=== PATIENT | female | born 2000 | race Native Hawaiian/Other Pacific Islander ===

== ENCOUNTER 2024-12-14 04:18 | Emergency (ER) | payer OTHER, SELFPAY ==
[2024-12-14 04:37] VITALS: BP 127/64; PULSE 86; RESP 18; TEMP 36.6; O2SAT 95; BMI 48.6
--- NOTE | 2024-12-14 04:49 | ED_ITS ---
HPI - Female Genitourinary General Chief complaint: Urogenital-Female Stated complaint: Possible UTI Time Seen by Provider: 12/14/24 04:43 Source: patient Mode of arrival: Ambulatory History of Present Illness HPI Narrative: Patient presents with urinary symptoms that began this morning. She denies the possibility of and reports no systemic symptoms such as fever or chills. She has no significant abdominal tenderness and denies vaginal discharge. She denies history of diabetes, hypertension heart disease or any family history of abnormalities she has had no history of UTIs in the past denies any new sexual contact or partners. Related Data Home Medications Medication Instructions Recorded Confirmed albuterol sulfate 90 mcg/actuation 1 puff INH ##0 07/30/16 aerosol inhaler (Ventolin HFA) Acetaminophen Extra Strength 500 mg PO Q6HR PRN Pain, Mild 12/14/24 12/14/24 diphenhydramine HCl 25 mg PO DAILY PRN allergies 12/14/24 12/14/24 Allergies Allergy/AdvReac Type Severity Reaction Status Date / Time No Known Drug Allergies Allergy Verified 12/14/24 04:35 Review of Systems Review of Systems Narrative: Constitutional: denies fever or chills. Eyes: no visual changes. Ears/Nose/Throat: no nasal congestion or drainage. Respiratory: no shortness of breath. Cardiac: no chest pain. Gastrointestinal: no nausea or vomiting. Skin: no laceration, no rash. Musculoskeletal: no extremity pain. Neurologic: no confusion. Psychiatric: no mood change. Genitourinary: reports urinary symptoms, denies vaginal discharge. Other: other. Exam Narrative Exam Narrative: General: Well appearing, well nourished, in no distress. Skin: Good turgor, no rash, unusual bruising or prominent lesions. Head: Normocephalic, atraumatic. HEENT: Conjunctiva clear, EOM intact, PERRL, Mucous membranes moist. Neck: Supple, normal ROM. Heart: Regular rate and rhythm, no murmur or gallop or rubs. Lungs: Clear to auscultation. No rales, rhonchi, or wheezes. Abdomen: No significant tenderness, no rebound tenderness, no pubic tenderness. Bowel sounds normal. No mass or hernia. Back: Spine normal without deformity or tenderness, no CVA tenderness. Extremities: No deformities, edema. Peripheral pulses intact. Neurologic: CN 2-12 normal. Normal sensation and motor exam. Psychiatric: Oriented X3. Normal mood and affect. Initial Vital Signs Initial Vital Signs: Vital Signs Temperature 97.9 F 12/14/24 04:37 Pulse Rate 86 12/14/24 04:37 Respiratory Rate 18 12/14/24 04:37 Blood Pressure 127/64 12/14/24 04:37 Pulse Oximetry 95 12/14/24 04:37 Oxygen Delivery Method Room Air 12/14/24 04:37 Course Orders Ordered: ED Orders 12/14/24 04:34 Ictotest Urine Stat 12/14/24 05:15 UA Complete [Urinalysis and Microscopic] Stat Vital Signs Vital signs: Vital Signs - 8 hr 12/14/24 04:37 Temperature 97.9 F Pulse Rate 86 Respiratory Rate 18 Blood Pressure 127/64 Pulse Oximetry 95 Oxygen Delivery Method Room Air MDM - Female Genitourinary Lab Data Labs: Lab Results 12/14/24 Range/Units 04:34 Urine Color Yellow Urine Appearance Sl cloudy Urine pH 6.0 (4.5-8.0) Ur Specific [place] 1.025 (1.000-1.035) Urine Protein Negative (Negative) Urine Glucose (UA) Negative (Negative) g/dL Urine Ketones Negative (NEGATIVE) Urine Occult Blood Negative (Negative) Urine Nitrate Negative (Negative) Urine Bilirubin 1+ H (NEGATIVE) Ur Bilirubin Confirm Negative (Negative) Urine Urobilinogen 0.2 (0.2) E.U./dL Ur Leukocyte Esterase Trace H (NEGATIVE) Urine RBC None seen (0-5/HPF) Urine WBC 0-1/hpf (0-5/HPF) Ur Squamous Epith Cells 5-10 /hpf H (0-5/HPF) Urine Bacteria Occasional (0-1) (None) Urine Mucus 1+ H (Negative) Ur Culture Indicated? Cult not indicated Vol Urine Centrifuged 10ml (spun) Point of Care Testing Test Results Negative Glucose POC 79 Urine Dip Bedside Urine Glucose Negative Bedside Urine Bilirubin - Negative Bedside Urine Ketone - Negative Urine Specific [place] 1.020 Bedside Urine Occult Blood - Negative Bedside Urine pH 5.5 Bedside Urine Protein - Negative Bedside Urine Urobilinogen - Negative Bedside Urine Nitrite - Negative Bedside Urine Leukocytes - Negative Esterase MDM Narrative Medical decision making narrative: 24-year-old female presenting with increased urinary frequency burning, hesitancy that began this morning, no fevers no chills no systemic symptoms no new sexual partners. INITIAL EVALUATION AND PLAN: - Urinalysis to evaluate for infection. - If infection is present, prescribe antibiotics. - If urinalysis is negative, consider other causes and follow up with primary care physician if necessary. - Differential diagnosis includes but is not limited to: Urinary tract infection, , UTI, STI, diabetes -patient's urinalysis shows no signs of infection, no signs of glucose in the urine and point of care glucose is not significantly elevated do not believe patient has urinary tract infection, I do not believe patient has diabetes as the cause of her urinary frequency -as patient is once again about sexual contact vaginal discharge, no endorsement of new partners vaginal discharge, offered pelvic exam declined at this time. 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 -benign abdominal exam on multiple evaluations without significant tenderness. -return precautions discussed and patient discharged from the emergency depar tment Discharge Plan Departure Patient Disposition: Home Clinical Impression: Lower urinary tract symptoms Activity Restrictions/Additional Instructions: You were seen in the emergency department today for increased urinary frequency fortunately your blood glucose was within normal limits and he did not have signs of urinary tract infection. Please follow-up with your primary care doctor/OBGYN for re-evaluation and further evaluation for the cause of your symptoms if they do not begin to resolve. If it begins to have fevers chills worsening pain with urination please return to the emergency department or urgent care to have a repeat urine sample done and potential lab work if he began to have systemic symptoms. Prescriptions: No Action albuterol sulfate [Ventolin HFA] 90 MCG/PUFF HFA aerosol inhaler 1 puff INH Qty: 0 Acetaminophen Extra Strength 500 mg PO Q6HR PRN (Reason: Pain, Mild) diphenhydramine HCl 25 mg PO DAILY PRN (Reason: allergies) Referrals: Licha Frazier MD [Primary Care Provider] - Stand Alone Forms: Patient Portal/API/Survey
[2024-12-14 05:26] LABS: Appearance Urine UA SL CLOUDY; Bilirubin Urine UA 1+ (NEGATIVE); Color Urine UA YELLOW; Glucose Urine UA NEGATIVE (Negative); Ketones Urine UA NEGATIVE (NEGATIVE); Leukocyte Esterase Urine UA TRACE (NEGATIVE); Nitrite Urine UA NEGATIVE (Negative); Occult Blood Urine UA NEGATIVE (Negative); Protein Urine UA NEGATIVE (Negative); Specific Gravity Urine UA 1.025 (1.000-1.035); Urobilinogen Urine UA 0.2 E.U./dL (0.2)
[2024-12-14 05:33] LABS: Bacteria Urine Occasional (0-1); Culture Indicated Urine Cult Not Indicated; Ictotest Urine Negative (Negative); Mucus Urine 1+ (Negative); RBC Urine None Seen (0-5/HPF); Squamous Epithelial Cell Urine 5-10 /HPF (0-5/HPF); Urine Volume 10mL (spun); WBC Urine 0-1/HPF (0-5/HPF)
[2024-12-14 05:49] VITALS: BP 147/94; PULSE 84; RESP 16; O2SAT 97
== END 2024-12-14 05:50 | disposition home or self-care (01) ==
PROVIDERS: Emergency Provider Emergency Medicine; Family Provider Family Medicine; PCP Family Medicine
DX: R39.9 Unspecified symptoms and signs involving the genitourinary system (principal); R35.0 Frequency of micturition
CPT/HCPCS: 81001; 81003; 81025; 82962; 99282

== ENCOUNTER 2025-02-06 09:48 | Emergency (ER) | payer OTHER, SELFPAY ==
[2025-02-06 09:51] VITALS: BP 146/91; PULSE 88; RESP 13; TEMP 36.9; O2SAT 96; BMI 51.2
[2025-02-06 10:48] LABS: COVID-19 CEPHEID 4-PLEX PCR Negative (Negative); Influenza A - CEPHEID Flu A NEGATIVE (NEGATIVE); Influenza B - CEPHEID Flu B NEGATIVE (NEGATIVE); Respiratory Syncytial Virus Negative (Negative)
--- NOTE | 2025-02-06 14:44 | DI.RAD.S_ITS ---
PROCEDURE: XR CHEST 2V INDICATIONS: ?pna TECHNIQUE: 2 views of the chest were acquired. COMPARISON: None. FINDINGS: Surgical changes and devices: None. Lungs and pleura: Lungs are clear. No pleural effusions or pneumothorax. Mediastinum: Mediastinal contours are normal. Heart size is normal. Bones and chest wall: No suspicious bony abnormalities. Soft tissues appear unremarkable. IMPRESSION: No acute cardiopulmonary abnormality is seen. Dictated by: Davi Buitrago M.D. on 02/06/2025 at 14:59 Approved by: Davi Buitrago M.D. on 02/06/2025 at 15:05
--- NOTE | 2025-02-06 14:45 | EKG_ITS ---
[address] [address] Test Date: 2025-02-06 Pat Name: [facility] Department: [facility] Room: Gender: Female Interventional Technologist: SAUD : 2000 Requested By: Order Number: [id number] Reading MD: Renzo Marks Measurements Intervals [place] Rate: 79 P: 55 TN: 114 QRS: 38 QRSD: 80 T: 5 QT: 386 QTc: 442 Interpretive Statements Normal sinus rhythm Electronically Signed On 02-08-2025 16:19:30 PDT by Renzo Marks
--- NOTE | 2025-02-06 14:47 | ED.URI ---
HPI - URI/Sore Throat <Lary Vickers MD - Last Filed: 02/06/25 16:18> General Chief Complaint: Upper Respiratory Symptoms Stated Complaint: SOB, headache Time Seen by Provider: 02/06/25 14:10 Mode of arrival: Ambulatory History of Present Illness HPI Narrative: 24-year-old female presents with 1 week of dry cough. She does have some mild exertional dyspnea and chest pain with coughing. No associated ear pain sore throat or congestion. No sick contacts. Reports prior history of asthma. No shortness a breath at rest or LE edema. No personal history of DVT or PE Related Data Home Medications Medication Instructions Recorded Confirmed albuterol sulfate 90 mcg/actuation 1 puff INH ##0 07/30/16 aerosol inhaler (Ventolin HFA) Acetaminophen Extra Strength 500 mg PO Q6HR PRN Pain, Mild 12/14/24 12/14/24 diphenhydramine HCl 25 mg PO DAILY PRN allergies 12/14/24 12/14/24 Previous Rx's Medication Instructions Recorded albuterol sulfate 90 mcg/actuation 1 inh inhalation Q4-6H PRN 02/06/25 breath activated powder inhaler shortness of breath or wheezing #1 ea prednisone 50 mg tablet 50 mg PO DAILY 5 days #5 tabs 02/06/25 albuterol sulfate 90 mcg/actuation 2 puff inhalation Q4-6H PRN 02/07/25 aerosol inhaler shortness of breath or wheezing #8.5 grams Allergies Allergy/AdvReac Type Severity Reaction Status Date / Time No Known Drug Allergies Allergy Verified 02/06/25 09:51 <Triston Garcia DO - Last Filed: 02/08/25 06:54> History of Present Illness HPI Narrative: 24-year-old female presents with 1 week of dry nonproductive nonbloody cough. She does have some mild exertional dyspnea and chest pain with coughing. No associated ear pain sore throat or congestion. No sick contacts. Reports prior history of asthma. No shortness a breath at rest or LE edema. No personal history of DVT or PE. Other than what is stated 14 point review of system is negative. Review of Systems <Lary Vickers MD - Last Filed: 02/06/25 16:18> Review of Systems Narrative: Negative except as stated in HPI <Triston Garcia - Last Filed: 02/08/25 06:54> Review of Systems ROS Unobtainable: All systems reviewed & are unremarkable except as noted in HPI and below Patient History <Lary Vickers MD - Last Filed: 02/06/25 16:18> Social History Smoking Status: Unknown if ever smoked Smoking Status: Unknown if ever smoked Exam <Lary Vickers MD - Last Filed: 02/06/25 16:18> Initial Vital Signs Initial Vital Signs: Vital Signs Temperature 98.4 F 02/06/25 09:51 Pulse Rate 88 02/06/25 09:51 Respiratory Rate 13 02/06/25 09:51 Blood Pressure 146/91 H 02/06/25 09:51 Pulse Oximetry 96 02/06/25 09:51 Oxygen Delivery Method Room Air 02/06/25 09:51 Constitutional: Well appearing 24-year-old female resting on the edge of the bed comfortably, no acute distress Head: NCAT Neck: No JVD Cardiovascular: RRR, no murmur or rub, 2+ radial pulses Pulmonary: CTA bilaterally, no respiratory distress Extremities: No LE edema or posterior calf/thigh pain Skin: warm and dry, no diaphoresis Neurological: Alert and oriented x3, normal speech, visual espitia intact, normal strength in extremities <Triston Garcia, DO - Last Filed: 02/08/25 06:54> Initial Vital Signs Initial Vital Signs: Vital Signs Temperature 98.4 F 02/06/25 09:51 Pulse Rate 88 02/06/25 09:51 Respiratory Rate 13 02/06/25 09:51 Blood Pressure 146/91 H 02/06/25 09:51 Pulse Oximetry 96 02/06/25 09:51 Oxygen Delivery Method Room Air 02/06/25 09:51 Course <Lary Vickers MD - Last Filed: 02/06/25 16:18> Orders Ordered: ED Orders 02/06/25 09:55 Covid-19 + FLU A/B + RSV - PCR Stat 02/06/25 14:44 XR chest 2V Stat 02/06/25 14:45 EKG-12 Lead Stat Vital Signs Vital signs: Vital Signs - 8 hr 02/06/25 09:51 02/06/25 15:21 Temperature 98.4 F 97.6 F Pulse Rate 88 71 Respiratory Rate 13 12 Blood Pressure 146/91 H 144/81 H Pulse Oximetry 96 94 Oxygen Delivery Method Room Air Room Air <Triston Garcia DO - Last Filed: 02/08/25 06:54> Orders Ordered: ED Orders 02/06/25 09:55 Covid-19 + FLU A/B + RSV - PCR Stat 02/06/25 14:44 XR chest 2V Stat 02/06/25 14:45 EKG-12 Lead Stat Vital Signs Vital signs: Vital Signs - 8 hr 02/06/25 09:51 02/06/25 15:21 Temperature 98.4 F 97.6 F Pulse Rate 88 71 Respiratory Rate 13 12 Blood Pressure 146/91 H 144/81 H Pulse Oximetry 96 94 Oxygen Delivery Method Room Air Room Air MDM - URI/Sore Throat <Lary Vickers MD - Last Filed: 02/06/25 16:18> Lab Data Labs: Lab Results 02/06/25 Range/Units 09:55 SARS-CoV-2 (PCR) Negative (Negative) Influenza A (RT-PCR) Flu a negative (NEGATIVE) Influenza B (RT-PCR) Flu b negative (NEGATIVE) RSV (PCR) Negative (Negative) MDM Narrative Medical decision making narrative: 24-year-old female with history of headaches, asthma, seasonal allergies, here with 1 week of respiratory infectious illness. She does endorse some slight dyspnea and chest discomfort with coughing or activity. Here in ED patient noted to be slightly hypertensive without fever a normal respiratory rate, 94% on room air with out any increased work of breathing. There is a scant expiratory wheeze on exam. No focal lung sounds. No clinical signs of DVT. No tachycardia. Differential diagnoses considered in this patient include a viral upper respiratory infection, asthma exacerbation, pneumonia, bronchitis. Doubt ACS or PE in this young patient without any hypoxia or tachycardia or clinical signs of DVT. Favor infectious etiology of dyspnea and chest pain given her acute respiratory infectious symptoms. EKG 1456: Sinus rhythm rate of 79. Normal intervals, normal axis. T-wave inversion in lead 3. No ST segment elevation or depression CXR Impression Lungs and pleura: Lungs are clear. No pleural effusions or pneumothorax. Viral respiratory panel is negative for flu or COVID or RSV. I rechecked the patient remains well. Counseled her on signs symptoms of viral respiratory infection and bronchitis. We discussed supportive care at home and did offer a short course of prednisone and MDI albuterol given her history of asthma. Return precautions discussed and provided prior to discharge. Patient is referred to her PCP for recheck <Triston Garcia, DO - Last Filed: 02/08/25 06:54> Lab Data Labs: Lab Results 02/06/25 Range/Units 09:55 SARS-CoV-2 (PCR) Negative (Negative) Influenza A (RT-PCR) Flu a negative (NEGATIVE) Influenza B (RT-PCR) Flu b negative (NEGATIVE) RSV (PCR) Negative (Negative) Discharge Plan Departure Patient Disposition: Home Clinical Impression: Upper respiratory infection Instructions: DI for Bronchiolitis Activity Restrictions/Additional Instructions: Please see education regarding bronchitis. As we discussed this is inflammation of the airways that can make people feel short of breath and have wheezing, typically following a viral respiratory infection. Your chest x-ray did not show evidence of pneumonia. Therefore, antibiotics will not work to improve your symptoms. As we discussed, I think it would be reasonable to try a short course of steroid to see if that can help your breathing. Additionally, I will refill your albuterol inhaler prescription which you should use for shortness of breath and wheezing at home. Please follow-up with your family doctor within the next week for recheck. May return to the emergency department at any time if her symptoms are worsening despite treatment or new symptoms such as persistent chest pain or swelling of your legs Prescriptions: New albuterol sulfate 90 mcg/actuation aerosol powdr breath activated 1 inh inhalation Q4-6H PRN (Reason: shortness of breath or wheezing) Qty: 1 0RF prednisone 50 mg tablet 50 mg PO DAILY 5 Days Qty: 5 0RF albuterol sulfate 90 mcg/actuation HFA aerosol inhaler 2 puff inhalation Q4-6H PRN (Reason: shortness of breath or wheezing) Qty: 8.5 0RF No Action albuterol sulfate [Ventolin HFA] 90 MCG/PUFF HFA aerosol inhaler 1 puff INH Qty: 0 Acetaminophen Extra Strength 500 mg PO Q6HR PRN (Reason: Pain, Mild) diphenhydramine HCl 25 mg PO DAILY PRN (Reason: allergies) Referrals: Licha Frazier MD [Primary Care Provider] - Stand Alone Forms: Patient Portal/API/Survey, Work Release Note
[2025-02-06 15:21] VITALS: BP 144/81; PULSE 71; RESP 12; TEMP 36.4; O2SAT 94
== END 2025-02-06 15:44 | disposition home or self-care (01) ==
PROVIDERS: Emergency Medicine; Emergency Provider Student in an Organized Health Care Education/Training Program; Family Provider Family Medicine; PCP Family Medicine
DX: J06.9 Acute upper respiratory infection, unspecified (principal); R07.9 Chest pain, unspecified
CPT/HCPCS: 0241U; 71046; 93005; 99283; 99284